=== PATIENT | female | born 1980 | race Caucasian/White ===

== ENCOUNTER 2020-05-30 08:09 | Emergency (ER) | payer OTHER, SELFPAY ==
[~2020-05-30] VITALS: Ht 157.5 cm; Wt 127.0 kg
[2020-05-30 08:21] VITALS: BP 118/79
[2020-05-30 08:28] VITALS: BP 128/91
--- NOTE | 2020-05-30 08:37 | NUR ---
covid-19 swab collected
[2020-05-30 08:40] VITALS: BP 128/91
--- NOTE | 2020-05-30 08:40 | NUR ---
Patient discharged with v/s stable. Written and verbal after care instructions given and explained. Patient verbalized understanding. Ambulatory with steady gait. All questions addressed prior to discharge. Advised to follow up with PMD.
--- NOTE | 2020-05-30 08:40 | NUR ---
c/o couch congestion fever/chills and light headedness x 3 days--
== END 2020-05-30 08:40 | disposition home or self-care (01) ==
LOC: MED 08:09
DX: U07.1 COVID-19 (principal); J06.9 Acute upper respiratory infection, unspecified; M79.10 Myalgia, unspecified site; R05 Cough
CPT/HCPCS: 99283; U0003